=== PATIENT | female | born 1960 | race Caucasian/White ===

== ENCOUNTER 2020-03-07 16:40 | Emergency (ER) | payer MEDICAID ==
[~2020-03-07] VITALS: Ht 175.3 cm; Wt 65.3 kg
[2020-03-07 16:47] VITALS: BP_SYST 109
--- NOTE | 2020-03-07 17:00 | NUR ---
Patient to ER bed 07 to gown for evaluation. Side rails up.
--- NOTE | 2020-03-07 17:02 | NUR ---
Pt brought by self , ambulatory, A&Ox4, pt presents to ER with pain on L pinky finger after playing with son, pt states finger was twisted, skin pink and warm, cap refill <3.
--- NOTE | 2020-03-07 17:10 | NUR ---
Dr Pereira at bedside examining patient
[2020-03-07] MEDS ORDERED: KETOROLAC TROMETHAMINE 60 MG/2 ML VIAL IM ONE (17:30)
[2020-03-07 17:58] VITALS: BP_SYST 109
--- NOTE | 2020-03-07 17:59 | NUR ---
Patient given written and verbal discharge instructions and verbalizes understanding. ER MD discussed with patient the results and treatment provided. Patient in stable condition. ID arm band removed. Rx of Motrin and [place] given. Patient educated on pain management and to follow up with PMD. Pain Scale 0/10 . Opportunity for questions provided and answered. Medication side effect fact sheet provided.
== END 2020-03-07 17:59 | disposition home or self-care (01) ==
LOC: SED 16:40
DX: S62.637A Displaced fracture of distal phalanx of left little finger, initial encounter for closed fracture (principal); Y99.8 Other external cause status; W22.8XXA Striking against or struck by other objects, initial encounter; Y93.89 Activity, other specified; Y92.89 Other specified places as the place of occurrence of the external cause; F17.200 Nicotine dependence, unspecified, uncomplicated
CPT/HCPCS: 29130; 73130; 96372; 99283; J1885